=== PATIENT | female | born 1945 | race American Indian/Alaskan Native ===

== ENCOUNTER 2016-10-31 10:38 | Outpatient (CLI) | payer MEDICARE ==
--- NOTE | 2016-10-31 14:46 | Fluoroscopy Report ---
DOUBLE CONTRAST BARIUM ENEMA INDICATION: Incomplete colonoscopy yesterday. History of colon polyps. COMPARISON: None similar. FINDINGS: Preliminary radiograph demonstrates a nonobstructive bowel gas pattern. Moderate lumbar spondylosis. Using fluoroscopic guidance, the entire colon filled in retrograde fashion with barium and air. The colonic caliber and mucosal pattern are within normal limits, allowing for presumed barium flocculation/stool artifact throughout the colon. No constricting lesions or fixed intraluminal masses identified. Reflux identified into the appendix. CONCLUSION: Unremarkable air contrast barium enema, as described. Thank you for the opportunity to participate in this patient's care.
== END 2016-10-31 10:39 | disposition home or self-care (01) ==
LOC: FLUORO 10:38
PROVIDERS: ATTEND Internal Medicine
DX: Z86.010 Personal history of colon polyps (principal); M47.896 Other spondylosis, lumbar region
CPT/HCPCS: 74280

== ENCOUNTER 2017-10-20 09:03 | Outpatient (CLI) | payer MEDICARE ==
--- NOTE | 2017-10-20 19:33 | XRay Report ---
FINAL REPORT PROCEDURE: XR SPINE LUMBOSACRAL 4+V TECHNIQUE: Lumbar spine radiographs, including AP, lateral, oblique, and lumbosacral spot views. HISTORY: Hip pain, acute left. COMPARISON: No prior studies are available for comparison. FINDINGS: Alignment: Slight L2-3 retrolisthesis. Vertebral body heights/Disk spaces: Multilevel osteophytes. Bridging osteophytes in the lower thoracic spine. Mild multilevel disc space narrowing and Schmorl's nodes. Moderate endplate changes at L 2-3. Fracture(s): None. Facets: L5-S1 facet arthropathy. Bone mineralization: Osteopenia. Other: Pelvic phleboliths. Atherosclerosis. IMPRESSION: Osteopenia and degenerative changes of the lumbar spine. Atherosclerosis.
--- NOTE | 2017-10-20 19:38 | XRay Report ---
FINAL REPORT PROCEDURE: XR HIP 2-3V LT TECHNIQUE: LEFT hip radiographs, 2 views each, including AP view of the pelvis. HISTORY: Hip pain, acute, left. COMPARISON: No prior studies are available for comparison. FINDINGS: Fracture (s) and/or Dislocation(s): None . Joint space(s): Mild narrowing of the bilateral hip joints with small osteophytes. Narrowing of the symphysis. Soft tissues: Pelvic phleboliths Bone mineralization: Osteopenia Foreign bodies: None. IMPRESSION: Osteopenia and degenerative change. No radiographic evidence of displaced fracture. Consider CT scan or MRI for further characterization if there is continued clinical concern (and if patient has no contraindication to MRI).
== END 2017-10-20 09:04 | disposition home or self-care (01) ==
LOC: XRAY 09:03
PROVIDERS: ATTEND Internal Medicine
DX: M16.12 Unilateral primary osteoarthritis, left hip (principal); M47.896 Other spondylosis, lumbar region; M85.88 Other specified disorders of bone density and structure, other site; I87.8 Other specified disorders of veins; M51.46 Schmorl's nodes, lumbar region; I70.90 Unspecified atherosclerosis
CPT/HCPCS: 72110